=== PATIENT | female | born 1960 | race Caucasian/White ===

== ENCOUNTER 2017-09-17 04:57 | Inpatient (IN) | payer OTHER ==
[2017-08-22 13:14] VITALS: BMI 33.0
--- NOTE | 2017-08-22 13:50 | PAT Medication Instructions ---
Service Date Aug 22, 2017. Current Home Medication List Atorvastatin (Lipitor), 10 MG PO QAM Diclofenac (Voltaren), 75 MG PO BID Diltiazem Hcl Ext Rel (Tiazac), 240 MG PO QAM Prednisone (Prednisone), 40 MG PO QAM Topiramate (Topamax), 50 MG PO BID Valsartan (Diovan), 160 MG PO QAM [Vitamin D], 1.25 MG PO WEEKLY Medication Instructions For Your Scheduled Surgery -Contact your surgeon for instructions for: Diclofenac (Voltaren), 75 MG PO BID - Hold the following medications the morning of surgery: Valsartan (Diovan), 160 MG PO QAM [Vitamin D], 1.25 MG PO WEEKLY - Take the following medications the morning of surgery with a sip of water: Atorvastatin (Lipitor), 10 MG PO QAM Diltiazem Hcl Ext Rel (Tiazac), 240 MG PO QAM Prednisone (Prednisone), 40 MG PO QAM Topiramate (Topamax), 50 MG PO BID - Take the following medications as scheduled the night before surgery: Topiramate (Topamax), 50 MG PO BID If you have any questions please call us at [phone] or [phone] or [phone]
--- NOTE | 2017-08-22 14:41 | DIAGNOSTIC IMAGING REPORT ---
CHEST 2 VIEWS ROUTINE HISTORY: Preop. COMPARISON: None. FINDINGS: A few bibasilar linear densities consistent with subsegmental atelectasis or scarring. The heart is normal in size. No pleural effusions. No pneumothorax. IMPRESSION: Bibasilar linear densities suggesting subsegmental atelectasis or scarring. Otherwise, no acute process within the chest. Electronically signed by: Jamal Rodríguez M.D. 08/22/2017 2:40 PM Dictated Date/Time: 08/22/2017 2:38 PM
[2017-08-22 15:04] LABS: BASO % 0.5 %; BASO ABS # 0.04 K/uL (0-0.2); EOS % 1.9 %; EOS ABS # 0.14 K/uL (0-0.5); HEMATOCRIT 40.5 % (37-47); HEMOGLOBIN 14.3 g/dL (12.0-16.0); IG# 0.01 K/uL (0.00-0.02); LYMPH ABS # 3.25 K/uL (1.2-3.4); MEAN CELL VOLUME 91.4 fL (80-100); MEAN CORPUSCULAR HEMOGLOBIN 32.3 pg (25-34); MEAN CORPUSCULAR HGB CONC 35.3 g/dl (32-36); MEAN PLATELET VOLUME 9.8 fL (7.4-10.4); MONO % 6.8 %; MONO ABS # 0.51 K/uL (0.11-0.59); NEUT % 47.7 %; PLATELET COUNT 402 K/uL (130-400); RED CELL DISTRIBUTION WIDTH SD 50.7 fL (36.4-46.3); WHITE BLOOD COUNT 7.55 K/uL (4.8-10.8)
[2017-08-22 15:13] LABS: ALBUMIN 3.4 gm/dl (3.4-5.0); CALCIUM 8.6 mg/dl (8.5-10.1); CREATININE 0.84 mg/dl (0.60-1.20); POTASSIUM 3.5 mmol/L (3.5-5.1)
[2017-08-22 15:19] LABS: PTT PATIENT 28.8 SECONDS (21.0-31.0)
[2017-08-23 07:54] LABS: HEMOGLOBIN A1C 5.6 % (4.5-5.6)
--- NOTE | 2017-09-16 22:05 | HISTORY & PHYSICAL EXAMINATION ---
DATE OF ADMISSION: 09/17/2017 CHIEF COMPLAINT: Chronic right knee pain. HISTORY OF PRESENT ILLNESS: This is a 57-year-old female patient of Dr. Núñez'delon complaining of chronic right knee pain, longstanding, now progressively getting worse. The patient has been diagnosed with end-stage osteoarthritis per clinical and radiographic exams. The patient has failed conservative treatment including anti-inflammatories and the use of a sleeve. The patient has increased pain with weightbearing activities and her pain does interfere with her activities of daily living. PAST MEDICAL HISTORY: Hypertension, anxiety, osteoarthritis, obesity, dental issues. SOCIAL HISTORY: Nonsmoker, nondrinker. PAST SURGICAL HISTORY: Tonsillectomy, appendectomy, cholecystectomy, splenectomy, reverse tubal ligation, carpal tunnel on the right and a left hip replacement. FAMILY HISTORY: Noncontributory. REVIEW OF SYSTEMS: The patient complains of chronic right knee pain and instability. Otherwise denies any shortness of breath, chest pain, nausea, vomiting or any other joint complaints. MEDICATIONS: Atorvastatin 10 mg daily, vitamin D2 50,000 units daily, prednisone 20 mg daily, diclofenac 75 mg as needed, topiramate 50 mg b.i.d., diltiazem 240 mg extended release daily. ALLERGIES: INCLUDE PENICILLIN, AUGMENTIN. PHYSICAL EXAMINATION: GENERAL: Well-developed, well-nourished 57-year-old female in no acute distress. She is alert and oriented x3 and pleasant. HEENT: Normocephalic, atraumatic. Extraocular motions are intact. Pupils are equal and reactive to light. HEART: Regular rate and rhythm, no murmurs are appreciated. LUNGS: Clear. ABDOMEN: Soft and nontender. Bowel sounds present. EXTREMITIES: Right knee reveals mild effusion with limited range of motion. She has joint line tenderness. 4/5 strength. NEUROLOGIC: Neurovascularly, she is intact in her right lower extremity. DIAGNOSES: Right knee end-stage osteoarthritis with a history of hypertension, anxiety, osteoarthritis, obesity, dental issues. PLAN: The patient was advised of her diagnosis. Indications, risks, benefits, postop course have all been reviewed. The patient wished to proceed with a right total knee arthroplasty. Necessary consent forms, preoperative testing and clearances will be obtained.
[2017-09-17] VITALS (9 sets, daily range): BP systolic 110–140; BP diastolic 75–106; PULSE 66–90; TEMP 36.2–36.5; O2SAT 91–99; Ht 160 cm; Wt 86.3 kg
[~2017-09-17] VITALS: Ht 160 cm; Wt 86.3 kg
[~2017-09-17 04:57] MED LIST: ATOR10TA82 PO; DICL-201 PO; DILT-115 PO; DVN/160 PO; PRED20TA PO; TOPI50TA16 PO; VITAMIN D PO
[2017-09-17] MEDS ORDERED: LACTATED RINGER'S 1000ML 1,000 ML IV SCH (06:00)
[2017-09-17] MEDS ORDERED: FAMOTIDINE 20 MG TAB PO SCH (06:00)
[2017-09-17] MEDS ORDERED: ACETAMINOPHEN 500 MG TAB PO SCH (06:00)
[2017-09-17] MEDS ORDERED: METOCLOPRAMIDE HCL 10 MG TAB PO SCH (06:00)
[2017-09-17] MEDS ORDERED: VANCOMYCIN 1GM ED/ASU OMNICELL 270 ML IV SCH (06:00)
[2017-09-17] MEDS ORDERED: GABAPENTIN 600 MG PO SCH (06:00)
[2017-09-17] MEDS ORDERED: CeleBREX 200 MG CAP PO SCH (06:00)
[2017-09-17] MEDS ORDERED: LACTATED RINGER'S 1000ML 500 ML IV SCH (06:00)
[2017-09-17] MEDS ORDERED: ROPIVACAINE 5MG/ML 30 ML 150 MG, BUPIVACAINE 0.5% MPF INJ 30 ML, EpINEphrine HCL INJ 0.... INFIL SCH ×8 (06:00)
[2017-09-17] MEDS ORDERED: DEXAMETHASONE 4 MG TAB PO SCH (06:00)
[2017-09-17] MEDS ORDERED: VANCOMYCIN IV 1,250 MG in SODIUM CHLORIDE 0.9% 250ML 250 ML IV SCH ×2 (06:00→18:00)
[2017-09-17] MEDS ORDERED: BUPIVACAINE 0.5 % 5 MG/1 ML PF 10ML VIAL ONE (06:25)
[2017-09-17] MEDS ORDERED: FENTANYL CITRATE INJ 50 MCG/1 ML 2 ML VIAL ONE (06:26)
[2017-09-17] MEDS ORDERED: MIDAZOLAM HCL 1 MG/ML 2ML VIAL ONE ×2 (06:26→07:33)
[2017-09-17] MEDS ORDERED: POVIDONE-IODINE OP SOLN 30 ML BTL ONE (06:27)
[2017-09-17] MEDS ORDERED: BACITRACIN 50000 UNIT VIAL ONE (06:27)
[2017-09-17] MEDS ORDERED: ORTHO JOINT ANESTHETIC ONE (06:27)
[2017-09-17] MEDS: TRANEXAMIC ACID INJ 1,000 MG x 2 Bags IV SCH ×4 (06:30→07:14)
[2017-09-17] MEDS ORDERED: ATROPINE SULFATE 0.1 MG/ML 5ML SYR IV PRN (07:00)
[2017-09-17] MEDS ORDERED: FENTANYL CITRATE INJ 50 MCG/1 ML 2 ML VIAL IV PRN (07:00)
[2017-09-17] MEDS ORDERED: ONDANSETRON INJ 2 MG/ML 2 ML VIAL IV PRN (07:00)
[2017-09-17] MEDS ORDERED: EpHEDrine SULFATE INJ 50 MG/ML AMP IV PRN (07:00)
--- NOTE | 2017-09-17 07:19 | History & Physical Bridge Note ---
H&P Re-Evaluation Bridge Note: I have examined the patient, reviewed the History & Physical and in the interval since the performance of the History & Physical I have noted the following changes of clinical significance: No changes noted
[2017-09-17] MEDS ORDERED: PROPOFOL IV EMULSION 10 MG/ML 20 ML VIAL IV ONE (07:53)
--- NOTE | 2017-09-17 08:51 | [facility] Post Operative Brief Note ---
Immediate Operative Summary Operative Date Sep 17, 2017. Pre-Operative Diagnosis Right Knee Degenerative Joint Disease Post-Operative Diagnosis Same as preop Procedure(s) Performed Right Total Knee Arthroplasty Surgeon Dr. Núñez Toll Collector Surgeon(s) Mat Yoon PA-C Estimated Blood Loss 5 ml Findings Consistent with Post-Op Diagnosis Specimens A. Right Knee Bone and Tissue Drains 2 hemovac Anesthesia Type MAC Spinal Regional Complication(s) none Disposition Disposition: Recovery Room / PACU
[2017-09-17] MEDS ORDERED: SOD PHOSPHATE/SOD BIPHOSPHATE ENEMA 132 ML BTL PR PRN (09:15)
[2017-09-17] MEDS ORDERED: BISACODYL 10 MG SUPP PR PRN (09:15)
[2017-09-17] MEDS ORDERED: ZOLPIDEM TARTRATE 5 MG TAB PO PRN (09:15)
[2017-09-17] MEDS ORDERED: TRAMADOL HCL 50 MG TAB PO PRN (09:15)
[2017-09-17] MEDS ORDERED: METOCLOPRAMIDE HCL INJ 5 MG/ML 2 ML VIAL IV PRN (09:15)
[2017-09-17] MEDS ORDERED: MAGNESIUM HYDROXIDE SUSP 30 ML UDC PO PRN (09:15)
[2017-09-17] MEDS ORDERED: VANCOMYCIN CONSULT ACTIVE PRN (09:15)
--- NOTE | 2017-09-17 09:43 | DIAGNOSTIC IMAGING REPORT ---
RIGHT KNEE 2 VIEWS History: Right total knee arthroplasty. Degenerative arthritis. Postop. FINDINGS: The patient is status post a right total knee arthroplasty. The hardware is intact. No fracture or dislocation. Skin ian and surgical drains are in place. IMPRESSION: Right total knee arthroplasty. No evidence for hardware complication. Electronically signed by: Jamal Rodríguez M.D. 09/17/2017 9:42 AM Dictated Date/Time: 09/17/2017 9:41 AM
--- NOTE | 2017-09-17 09:51 | Anesthesiology Progress Note ---
Anesthesia Post Op Note Date & Time Sep 17, 2017 at 09:51 Vital Signs Pain Intensity: 0 Vital Signs Past 12 Hours Date Time Temp Pulse Resp B/P (MAP) Pulse Ox O2 Delivery O2 Flow Rate FiO2 09/17/17 09:40 67 16 113/86 96 Nasal Cannula 2 09/17/17 09:30 67 16 114/77 95 Nasal Cannula 2 09/17/17 09:20 67 16 106/79 95 Nasal Cannula 2 09/17/17 09:12 36.3 81 16 120/76 91 Room Air 09/17/17 05:40 36.5 69 20 140/106 94 Room Air Notes Mental Status: alert / awake / arousable, participated in evaluation Pt Amnestic to Procedure: Yes Nausea / Vomiting: adequately controlled Pain: adequately controlled Airway Patency, RR, SpO2: stable & adequate BP & HR: stable & adequate Hydration State: stable & adequate Neuraxial Anesthesia: was administered, sensory block is resolving Anesthetic Complications: no major complications apparent
[2017-09-17] MEDS ORDERED: MoRPHine SULFATE 4 MG/ML 1 ML CARP\\VIAL IV PRN (10:45)
[2017-09-17] MEDS: D5W AND 1/2NSS + 20MEQ KCL 1,000 ML IV SCH ×2 (11:00→21:47)
--- NOTE | 2017-09-17 12:26 | Medical Consult ---
Consultation Date of Consultation: Sep 17, 2017. Attending Physician: Lul Núñez M.D. History of Present Illness 57 years female with PMHx of HTN and osteoarthritis. patient failed out patient conservative management and presented to the hospital for an elective RTKA procedure went uneventful. Social History Smoking Status: Never Smoker Allergies Coded Allergies: Amoxicillin (Verified Allergy, Unknown, RASH, 09/17/17) Bacitracin (Verified Allergy, Unknown, RASH, 09/17/17) Neomycin (Verified Allergy, Unknown, RASH, 09/17/17) Polymyxin B (Verified Allergy, Unknown, RASH, 09/17/17) Current Inpatient Medications Current Inpatient Medications Medications (Trade) Dose Ordered Sig/Sarahi Route Start Time Stop Time Status Last Admin Dose Admin Acetaminophen (Tylenol Tab) 1,000 mg PREOP PO 09/17/17 06:00 09/17/17 18:00 Celecoxib (CeleBREX CAP) 200 mg PREOP PO 09/17/17 06:00 09/17/17 18:00 09/17/17 06:13 200 MG Dexamethasone (Decadron Tab) 8 mg PREOP PO 09/17/17 06:00 09/17/17 18:00 09/17/17 06:13 8 MG Famotidine (Pepcid Tab) 20 mg PREOP PO 09/17/17 06:00 09/17/17 18:00 09/17/17 06:13 20 MG Gabapentin (Neurontin Cap) 600 mg PREOP PO 09/17/17 06:00 09/17/17 18:00 09/17/17 06:13 600 MG Metoclopramide HCl (Reglan Tab) 10 mg PREOP PO 09/17/17 06:00 09/17/17 18:00 09/17/17 06:14 10 MG Atorvastatin Calcium (Lipitor Tab) 10 mg QAM PO 09/18/17 09:00 10/18/17 08:59 Diltiazem HCl (TIAzac CAP) 240 mg QAM PO 09/18/17 09:00 10/18/17 08:59 Topiramate (Topamax Tab) 50 mg BID PO 09/17/17 21:00 10/17/17 20:59 Valsartan (Diovan Tab) 160 mg QAM PO 09/18/17 09:00 10/18/17 08:59 Potassium Chloride/Dextrose/ Sod Cl 1,000 ml @ 100 mls/hr Q10H IV 09/17/17 11:00 09/18/17 10:59 09/17/17 11:00 100 MLS/HR Vancomycin HCl 1250 mg/Sodium Chloride 275 ml @ 125 mls/hr Q12H IV 09/17/17 18:00 09/17/17 20:11 Celecoxib (CeleBREX CAP) 200 mg BID PO 09/17/17 21:00 10/17/17 20:59 Oxycodone HCl (Roxicodone Immediate Rel Tab) 1 TABLET FOR PAIN RATING... Q4H PRN PO 09/17/17 09:15 10/01/17 09:14 Morphine Sulfate (MoRPHine SULFATE INJ) 2 mg Q2H PRN IV 09/17/17 09:15 10/01/17 09:14 Acetaminophen (Tylenol Tab) 1,000 mg Q8 PO 09/17/17 14:00 10/17/17 13:59 Magnesium Hydroxide (Milk Of Magnesia Susp) 30 ml Q6H PRN PO 09/17/17 09:15 10/17/17 09:14 Bisacodyl (Dulcolax Supp) 10 mg DAILY PRN DE 09/17/17 09:15 10/17/17 09:14 Sodium Biphosphate/ Sodium Phosphate (Fleet Enema) 132 ml DAILY PRN DE 09/17/17 09:15 10/17/17 09:14 Docusate Sodium (coLACE CAP) 100 mg BID PO 09/17/17 21:00 10/17/17 20:59 Diphenhydramine HCl (Benadryl Cap) 25 mg Q8H PRN PO 09/17/17 09:15 10/17/17 09:14 Zolpidem Tartrate (Ambien Tab) 5 mg HSZ PRN PO 09/17/17 09:15 10/17/17 09:14 Multivitamins (Multivitamin Tab) 1 tab QAM PO 09/18/17 09:00 10/18/17 08:59 Ondansetron HCl (Zofran Inj) 4 mg Q6H PRN IV 09/17/17 09:15 10/17/17 09:14 Metoclopramide HCl (Reglan Inj) 10 mg Q6H PRN IV 09/17/17 09:15 10/17/17 09:14 Pantoprazole Sodium (Protonix Tab) 40 mg QAM PO 09/18/17 09:00 09/21/17 09:01 Tramadol HCl (Ultram Tab) 1 tablet for pain rating... Q4H PRN PO 09/17/17 09:15 10/17/17 09:14 Aspirin (Ecotrin Tab) 81 mg BID PO 09/17/17 21:00 10/17/17 20:59 Morphine Sulfate (MoRPHine SULFATE INJ) 4 mg Q2H PRN IV 09/17/17 10:45 10/01/17 10:44 Review of Systems Review of system Constitutional: No fever / no chills / no sweats / no weakness / no fatigue Eyes: no blurring of vision / no eye pain / no discharge / no redness ENT: no hearing loss / no epistaxis /no swallowing problems Respiratory: no cough / no wheezing / no SOB / no hemoptysis Cardiovascular: no Chest pain / no lower extremity edema / no palpitation Abdomen: no pain / no nausea / no vomiting / no constipation Musculoskeletal: no joint pain / no muscle pain / no joint swelling Genitourinary: no dysuria / no incontinence / no urinary retention Neurologic: no focal weakness / no numbness/tingling / no ataxia Psychiatric: no depression symptoms / no anxiety / no insomnia Endocrine: no excessive thirst / no excessive urination Hematologic: no abnormal bleeding / no bruising / no LN swelling Skin: No rash / no pallor Physical Exam Date Time Temp Pulse Resp B/P (MAP) Pulse Ox O2 Delivery O2 Flow Rate FiO2 09/17/17 12:00 36.2 79 14 121/85 (97) 98 Nasal Cannula 2.0 09/17/17 11:03 36.4 69 15 110/77 (88) 99 Nasal Cannula 2.0 09/17/17 10:31 36.4 70 15 119/87 (98) 99 Nasal Cannula 2.0 09/17/17 10:00 94 Nasal Cannula 2.0 09/17/17 10:00 36.3 66 12 115/79 (91) 94 Nasal Cannula 2.0 09/17/17 10:00 94 Nasal Cannula 2.0 09/17/17 09:40 67 16 113/86 96 Nasal Cannula 2 09/17/17 09:30 67 16 114/77 95 Nasal Cannula 2 09/17/17 09:20 67 16 106/79 95 Nasal Cannula 2 09/17/17 09:12 36.3 81 16 120/76 91 Room Air 09/17/17 05:40 36.5 69 20 140/106 94 Room Air Physical examination General patient appears to be comfortable, not in acute distress HEENT: Atraumatic , normocephalic /no jaundice /no pallor /anicteric /no dry mucous membrane /normal external ear inspection Neck: Supple /no swelling /central trach Heart: S1/S2 normal/regular rate and rhythm/no gallop /no rub /no murmur Lungs: Clear to auscultation bilaterally/normal chest with expansion/no rhonchi/ no rales/no wheezing/no use of accessory muscles of respiration Abdomen: Soft/nontender/no guarding/no rebound/no organomegaly/no pulsatile mass Musculoskeletal: No swelling/no edema/no tenderness/normal range of motion Neuro exam: Awake alert oriented 3/cranial nerves II through XII appear to be intact/sensation intact/moves all extremities/no abnormal movements Psychiatric evaluation: No depressed mood/normal affect Skin: No rash on exposed skin area/no erythema Extremity: Normal pulse/no pitting edema/no clubbing or cyanosis Endocrine/lymphatic: No obvious lymphadenopathy /no lymphedema Laboratory Results Last 24 Hours Test 09/17/17 06:12 Human Chorionic Gonadotropin, Qual NEG Assessment & Plan 57 years female with PMHx of HTN and osteoarthritis. patient failed out patient conservative management and presented to the hospital for an elective RTKA procedure went uneventful. Assessment: severe osteoarthritis that failed outpatient conservative measures. Patient presented to the hospital for an elective orthopedic procedure Plan Status post orthopedic procedure, went uneventful full Patient tolerated procedure well with minimal blood loss Appears to be stable Continue outpatient medications Follow-up labs Ensure adequate oral/parenteral intake Pain management Physical therapy initiation as per primary orthopedic team DVT prophylaxis as per the choice of primary orthopedic team Please call us if you have any questions, patient blood pressure is controlled on her home blood pressure meds. Does not appear to have any active medical issues at this point
[2017-09-17] MEDS: ACETAMINOPHEN 500 MG TAB PO SCH ×2 (13:57→21:47)
[2017-09-17] MEDS: OXYCODONE HCL IR 5 MG TAB (IMMEDIATE RELEASE) PO PRN ×2 (14:02→20:25)
[2017-09-17] MEDS: TOPIRAMATE 25 MG TAB PO SCH (20:19)
[2017-09-17] MEDS: ASPIRIN 81 MG ECTAB PO SCH (20:19)
[2017-09-17] MEDS: DOCUSATE SODIUM 100 MG CAP PO SCH (20:20)
[2017-09-17] MEDS: CeleBREX 200 MG CAP PO SCH (20:21)
--- NOTE | 2017-09-17 20:42 | OPERATIVE REPORT ---
DATE OF OPERATION: 09/17/2017 INDICATION FOR PROCEDURE: The patient is a 57-year-old female who presents with chronic progressive osteoarthritis in her right knee. Radiographs demonstrate that she is [id number] to medial compartment with a varus knee. PREOPERATIVE DIAGNOSIS: Endstage osteoarthritis, right knee. POSTOPERATIVE DIAGNOSIS: Same. PROCEDURE: Right total knee arthroplasty. SURGEON: Lul Núñez MD. RESPIRATORY MANAGER: MAMIE Escalera. ANESTHESIA: Spinal sedation, adductor nerve block, Orthomix. ESTIMATED BLOOD LOSS: 5 mL. DRAINS: Two Hemovac. OPERATIVE PROCEDURE: The patient was taken to the operating room, anesthetized under anesthesia as dictated. Pneumatic tourniquet was placed on right upper thigh. She did have a moderately obese upper thigh. Knee exam demonstrated a varus knee. She had tight medial compartment, some laxity of the lateral collateral ligament relatively. She had a -5 through 125 degrees range of motion. She had a small effusion. Her right lower extremity was then prepped and draped with ChloraPrep. Leg was elevated and exsanguinated with an Esmarch bandage and pneumatic tourniquet was raised to 350 mmHg. Anterior incision was made across the knee. Skin incision was made longitudinally. Subcutaneous flaps were elevated. An incision was made through medial retinaculum extended up in the middle of the quadriceps tendon and extended down to the medial tibial tubercle. Intra-articular findings demonstrated that she had [id number] in the medial compartment. She had grade 3 DJD patellofemoral joint. I used the Cespedes & Nephew Journey 2.0, total knee arthroplasty system using [employer] MRI templating with femur sized for a 4, tibia for a 2. Exposure performed by resecting the infrapatellar fat pad performing more of a release throughout the medial tibial plateau and no release laterally. The fat pad over the anterior femur for placement of the component in that area was resected. Lateral synovial bands were released. The menisci were resected. The crucial ligaments were resected. The femur was exposed. The custom femoral cutting block was pinned in position. The distal femoral cut was made. Then the 5-in-1 cutting block was placed for the size 4 femur component. The anterior, posterior and chamfer cuts were made. The knee was then extended. A subperiosteal peel lateral release was performed around the patella and then the patella width was measured. The width was reproduced using freehand cut technique and drill holes for the dome patellar component were made. The excess lateral facet was bevelled off to prevent any impingement. The tibia was then exposed and subluxed. The custom tibial cutting block was pinned in position. The proximal tibial cut was made with the oscillating saw. The lamina trimmer operator was used to assess ligamentous balance. To balance the knee we had to pie crust the MCL to get balanced flexion and extension gaps. The tibia was resubluxed and 2 tibial trial was externally rotated in line with the tibial tubercle, pinned in position. Punch for the stem was used. The 4 femoral trial was inserted and centered and the notch cutting device was used and the collet was placed. A 12 insert gave balanced ligaments through full range of motion and patella tracked centrally with the 32 patella. The trials were removed. The Orthomix anesthetic cocktail was injected per protocol. The knee was copiously irrigated with pulsatile lavage saline solution. The final components were cemented with Simplex cement. Final components were the 4 Oxinium posterior stabilized right Cespedes & Nephew Journey 2.0 femoral component, the 2 tibial baseplate, the high flex posterior stabilized 12 mm polyethylene insert and the 32 mm dome patella. While cement cured, the Betadine soak was used per protocol. Then when the cement fully cured, the knee was again copiously irrigated with the saline solution and then the 2 drains were brought out laterally. Then the quadriceps tendon, medial retinaculum were closed with interrupted [id number] #1 Vicryl sutures. The knee was taken through full range of motion and repair was secured. Subcutaneous tissue closed with interrupted 2-0 Vicryl, skin was closed with ian. Sterile dressings were applied and the patient tolerated the procedure well. MAMIE Escalera was my food and beverage assistant who functioned as food and beverage assistant throughout the entire procedure. He assisted in patient positioning, prepping, draping, leg positioning, soft tissue retraction, instrument management and performed the fascial, subcutaneous and skin closure and will participate in postoperative care of the patient. I attest to the content of the Intraoperative Record and any orders documented therein. Any exception s are noted below.
[2017-09-18] VITALS (7 sets, daily range): BP systolic 121–153; BP diastolic 79–106; PULSE 69–86; TEMP 36.4–36.7; O2SAT 90–96
[2017-09-18] MEDS: ACETAMINOPHEN 500 MG TAB PO SCH ×3 (05:29→20:57)
[2017-09-18] MEDS ORDERED: NURSING DECISION MEDICATION ORDER SCH (05:45)
[2017-09-18 05:50] LABS: HEMOGLOBIN 11.4 g/dL (12.0-16.0); MEAN CELL VOLUME 90.4 fL (80-100); MEAN CORPUSCULAR HEMOGLOBIN 32.2 pg (25-34); MEAN CORPUSCULAR HGB CONC 35.6 g/dl (32-36); MEAN PLATELET VOLUME 9.6 fL (7.4-10.4); PLATELET COUNT 308 K/uL (130-400); RED CELL DISTRIBUTION WIDTH CV 14.8 % (11.5-14.5); RED CELL DISTRIBUTION WIDTH SD 49.4 fL (36.4-46.3); WHITE BLOOD COUNT 24.99 K/uL (4.8-10.8)
[2017-09-18 06:26] LABS: BASO ABS # 0.01 K/uL (0-0.2); IG# 0.09 K/uL (0.00-0.02); LYMPH % 9.1 %; LYMPH ABS # 2.27 K/uL (1.2-3.4); MONO % 6.1 %; MONO ABS # 1.52 K/uL (0.11-0.59); NEUT % 84.4 %
[2017-09-18 06:32] LABS: ALBUMIN 2.9 gm/dl (3.4-5.0); CALCIUM 8.1 mg/dl (8.5-10.1); CREATININE 0.72 mg/dl (0.60-1.20); POTASSIUM 3.6 mmol/L (3.5-5.1)
[2017-09-18 06:34] LABS: TOTAL PROTEIN 5.9 gm/dl (6.4-8.2)
[2017-09-18] MEDS: D5W AND 1/2NSS + 20MEQ KCL 1,000 ML IV SCH (08:06)
--- NOTE | 2017-09-18 08:09 | Orthopedic Progress Note ---
Orthopedic Progress Note Date of Service Sep 18, 2017. Subjective Post OP Day: 1 Reports: feeling well, pain controlled w PO medications, Denies: complaints, chest pain, SOB, nausea / vomiting, light headedness, calf pain Additional Notes: 200cc drain. Objective calves soft nontender, N/V intact, capillary refill less than 2 sec., dressing C /D/I, A&O x3, toes mobile Date Time Temp Pulse Resp B/P (MAP) Pulse Ox O2 Delivery O2 Flow Rate FiO2 09/18/17 06:50 36.6 72 17 128/85 (99) 92 Room Air 09/18/17 03:35 36.5 70 16 124/86 (99) 90 Room Air 09/17/17 23:15 Room Air 09/17/17 22:52 36.3 77 16 112/75 (87) 91 Room Air 09/17/17 20:27 36.4 90 16 122/77 (92) 94 Room Air 09/17/17 15:07 36.3 83 17 121/80 (94) 93 Room Air 09/17/17 15:00 Room Air 09/17/17 13:00 36.4 70 15 129/89 (102) 95 Nasal Cannula 2.0 09/17/17 12:00 36.2 79 14 121/85 (97) 98 Nasal Cannula 2.0 09/17/17 11:03 36.4 69 15 110/77 (88) 99 Nasal Cannula 2.0 09/17/17 10:31 36.4 70 15 119/87 (98) 99 Nasal Cannula 2.0 09/17/17 10:00 94 Nasal Cannula 2.0 09/17/17 10:00 36.3 66 12 115/79 (91) 94 Nasal Cannula 2.0 09/17/17 10:00 94 Nasal Cannula 2.0 09/17/17 09:40 67 16 113/86 96 Nasal Cannula 2 09/17/17 09:30 67 16 114/77 95 Nasal Cannula 2 09/17/17 09:20 67 16 106/79 95 Nasal Cannula 2 09/17/17 09:12 36.3 81 16 120/76 91 Room Air Laboratory Results 24 Hours: Test 09/18/17 05:12 White Blood Count 24.99 K/uL Red Blood Count 3.54 M/uL Hemoglobin 11.4 g/dL Hematocrit 32.0 % Mean Corpuscular Volume 90.4 fL Mean Corpuscular Hemoglobin 32.2 pg Mean Corpuscular Hemoglobin Concent 35.6 g/dl Platelet Count 308 K/uL Mean Platelet Volume 9.6 fL Neutrophils (%) (Auto) 84.4 % Lymphocytes (%) (Auto) 9.1 % Monocytes (%) (Auto) 6.1 % Eosinophils (%) (Auto) 0.0 % Basophils (%) (Auto) 0.0 % Neutrophils # (Auto) 21.10 K/uL Lymphocytes # (Auto) 2.27 K/uL Monocytes # (Auto) 1.52 K/uL Eosinophils # (Auto) 0.00 K/uL Basophils # (Auto) 0.01 K/uL Assessment & Plan Assessment: POD #1, Right TKA Plan: PT/ OT DVT proph- ASA D/C planning- Home w OPPT As per medicine Inhouse Planning Pain Management: Celebrex, Ultram, Morphine, PO Tylenol, Oxy IR DVT Prophylaxis: TEDs, SCDs, ASA Discharge Planning Discharge Planning: home with oppt Pain Management: Celebrex, PO Tylenol, Oxy IR DVT Prophylaxis: TEDs, ASA Therapy: Physical Therapy, Occupational Therapy
[2017-09-18] MEDS: CeleBREX 200 MG CAP PO SCH ×2 (08:45→20:58)
[2017-09-18] MEDS: DOCUSATE SODIUM 100 MG CAP PO SCH ×2 (08:45→20:59)
[2017-09-18] MEDS: ASPIRIN 81 MG ECTAB PO SCH ×2 (08:46→20:58)
[2017-09-18] MEDS: TOPIRAMATE 25 MG TAB PO SCH ×2 (08:47→20:57)
[2017-09-18] MEDS ORDERED: ATORVASTATIN 10 MG TAB PO SCH (09:00)
[2017-09-18] MEDS ORDERED: PANTOprazole SOD 40 MG TAB PO SCH (09:00)
[2017-09-18] MEDS ORDERED: VALSARTAN 80 MG TAB PO SCH (09:00)
[2017-09-18] MEDS ORDERED: MULTIVITAMIN TAB PO SCH (09:00)
[2017-09-18] MEDS ORDERED: DILTIAZEM HCL 120 MG EXT REL CAP PO SCH (09:00)
--- NOTE | 2017-09-18 09:54 | Anesthesiology Progress Note ---
Anesthesia Post Op Note Date & Time Sep 18, 2017 at 09:53 Vital Signs Vital Signs Past 12 Hours Date Time Temp Pulse Resp B/P (MAP) Pulse Ox O2 Delivery O2 Flow Rate FiO2 09/18/17 06:50 36.6 72 17 128/85 (99) 92 Room Air 09/18/17 03:35 36.5 70 16 124/86 (99) 90 Room Air 09/17/17 23:15 Room Air 09/17/17 22:52 36.3 77 16 112/75 (87) 91 Room Air Notes Mental Status: alert / awake / arousable, participated in evaluation Pt Amnestic to Procedure: Yes Nausea / Vomiting: adequately controlled Pain: adequately controlled Airway Patency, RR, SpO2: stable & adequate BP & HR: stable & adequate Hydration State: stable & adequate Neuraxial Anesthesia: sensory block resolved Anesthetic Complications: no major complications apparent
--- NOTE | 2017-09-18 10:48 | Hospitalist Progress Note ---
Hospitalist Progress Note Date of Service Sep 18, 2017. (Silvia Murry PA-C) Subjective Pt evaluation today including: conversation w/ patient, physical exam, chart review, lab review, review of studies, review of inpatient medication list Patient seen and evaluated. No acute events overnight. States she is having a little pain in the R knee but just finished with therapy. Tolerating a diet without issue. Verbalizes no complaints. WBC elevated at 24.9 but no signs of infection, ill- feeling, or fevers. Likely just reactive and related to pre-operative steroids. Constitutional: No fever, No chills ENT: No nasal symptoms, No sore throat Respiratory: No cough, No shortness of breath Cardiovascular: No chest pain Abdomen: No pain, No nausea, No vomiting, No diarrhea, No constipation Musculoskeletal: + joint pain (minimal in R knee - controlled with pain medication) Female : No dysuria Heme: No abnormal bleeding/bruising Skin: No rash (Silvia Murry PA-C) Medications Current Inpatient Medications Medications (Trade) Dose Ordered Sig/Sarahi Route Start Time Stop Time Status Last Admin Dose Admin Atorvastatin Calcium (Lipitor Tab) 10 mg QAM PO 09/18/17 09:00 10/18/17 08:59 09/18/17 08:46 10 MG Diltiazem HCl (TIAzac CAP) 240 mg QAM PO 09/18/17 09:00 10/18/17 08:59 09/18/17 08:47 240 MG Topiramate (Topamax Tab) 50 mg BID PO 09/17/17 21:00 10/17/17 20:59 09/18/17 08:47 50 MG Valsartan (Diovan Tab) 160 mg QAM PO 09/18/17 09:00 10/18/17 08:59 09/18/17 08:45 160 MG Potassium Chloride/Dextrose/ Sod Cl 1,000 ml @ 100 mls/hr Q10H IV 09/17/17 11:00 09/18/17 10:59 09/18/17 08:06 100 MLS/HR Celecoxib (CeleBREX CAP) 200 mg BID PO 09/17/17 21:00 10/17/17 20:59 09/18/17 08:45 200 MG Oxycodone HCl (Roxicodone Immediate Rel Tab) 1 TABLET FOR PAIN RATING... Q4H PRN PO 09/17/17 09:15 10/01/17 09:14 09/17/17 20:25 5 MG Morphine Sulfate (MoRPHine SULFATE INJ) 2 mg Q2H PRN IV 09/17/17 09:15 10/01/17 09:14 Acetaminophen (Tylenol Tab) 1,000 mg Q8 PO 09/17/17 14:00 10/17/17 13:59 09/18/17 05:29 1,000 MG Magnesium Hydroxide (Milk Of Magnesia Susp) 30 ml Q6H PRN PO 09/17/17 09:15 10/17/17 09:14 Bisacodyl (Dulcolax Supp) 10 mg DAILY PRN [place] 09/17/17 09:15 10/17/17 09:14 Sodium Biphosphate/ Sodium Phosphate (Fleet Enema) 132 ml DAILY PRN [place] 09/17/17 09:15 10/17/17 09:14 Docusate Sodium (coLACE CAP) 100 mg BID PO 09/17/17 21:00 10/17/17 20:59 09/18/17 08:45 100 MG Diphenhydramine HCl (Benadryl Cap) 25 mg Q8H PRN PO 09/17/17 09:15 10/17/17 09:14 Zolpidem Tartrate (Ambien Tab) 5 mg HSZ PRN PO 09/17/17 09:15 10/17/17 09:14 Multivitamins (Multivitamin Tab) 1 tab QAM PO 09/18/17 09:00 10/18/17 08:59 09/18/17 08:46 1 TAB Ondansetron HCl (Zofran Inj) 4 mg Q6H PRN IV 09/17/17 09:15 10/17/17 09:14 Metoclopramide HCl (Reglan Inj) 10 mg Q6H PRN IV 09/17/17 09:15 10/17/17 09:14 Pantoprazole Sodium (Protonix Tab) 40 mg QAM PO 09/18/17 09:00 09/21/17 09:01 09/18/17 08:46 40 MG Tramadol HCl (Ultram Tab) 1 tablet for pain rating... Q4H PRN PO 3/14/18 09:15 10/17/17 09:14 Aspirin (Ecotrin Tab) 81 mg BID PO 09/17/17 21:00 10/17/17 20:59 09/18/17 08:46 81 MG Morphine Sulfate (MoRPHine SULFATE INJ) 4 mg Q2H PRN IV 09/17/17 10:45 10/01/17 10:44 (Silvia Murry PA-C) Objective Vital Signs Date Time Temp Pulse Resp B/P (MAP) Pulse Ox O2 Delivery O2 Flow Rate FiO2 09/18/17 07:40 Room Air 09/18/17 06:50 36.6 72 17 128/85 (99) 92 Room Air 09/18/17 03:35 36.5 70 16 124/86 (99) 90 Room Air 09/17/17 23:15 Room Air 09/17/17 22:52 36.3 77 16 112/75 (87) 91 Room Air 09/17/17 20:27 36.4 90 16 122/77 (92) 94 Room Air 09/17/17 15:07 36.3 83 17 121/80 (94) 93 Room Air 09/17/17 15:00 Room Air 09/17/17 13:00 36.4 70 15 129/89 (102) 95 Nasal Cannula 2.0 09/17/17 12:00 36.2 79 14 121/85 (97) 98 Nasal Cannula 2.0 09/17/17 11:03 36.4 69 15 110/77 (88) 99 Nasal Cannula 2.0 (Silvia Murry PA-C) Physical Exam General Appearance: WD/WN, no apparent distress Eyes: sclerae normal ENT: hearing grossly normal Neck: supple, no JVD, trachea midline Respiratory/Chest: lungs clear, normal breath sounds, no respiratory distress, no accessory muscle use Cardiovascular: regular rate, rhythm, no gallop, no murmur Abdomen: normal bowel sounds, non tender, soft Extremities: + pertinent finding (R knee SHAY wrapped C/D/I; motor function intact; drain placed) Neurologic/Psychiatric: alert (Silvia Murry PA-C) Laboratory Results Last 24 Hours Test 09/18/17 05:12 White Blood Count 24.99 K/uL Red Blood Count 3.54 M/uL Hemoglobin 11.4 g/dL Hematocrit 32.0 % Mean Corpuscular Volume 90.4 fL Mean Corpuscular Hemoglobin 32.2 pg Mean Corpuscular Hemoglobin Concent 35.6 g/dl Platelet Count 308 K/uL Mean Platelet Volume 9.6 fL Neutrophils (%) (Auto) 84.4 % Lymphocytes (%) (Auto) 9.1 % Monocytes (%) (Auto) 6.1 % Eosinophils (%) (Auto) 0.0 % Basophils (%) (Auto) 0.0 % Neutrophils # (Auto) 21.10 K/uL Lymphocytes # (Auto) 2.27 K/uL Monocytes # (Auto) 1.52 K/uL Eosinophils # (Auto) 0.00 K/uL Basophils # (Auto) 0.01 K/uL RDW Standard Deviation 49.4 fL RDW Coefficient of Variation 14.8 % Immature Granulocyte % (Auto) 0.4 % Immature Granulocyte # (Auto) 0.09 K/uL Red Blood Cell Morphology Unremarkable Sodium Level 142 mmol/L Potassium Level 3.6 mmol/L Chloride Level 115 mmol/L Carbon Dioxide Level 19 mmol/L Anion Gap 8.0 mmol/L Blood Urea Nitrogen 12 mg/dl Creatinine 0.72 mg/dl Est Creatinine Clear Calc Drug Dose 91.9 ml/min Estimated GFR () 109.3 Estimated GFR (Non- 94.3 BUN/Creatinine Ratio 16.7 Random Glucose 150 mg/dl Calcium Level 8.1 mg/dl Magnesium Level 2.0 mg/dl Total Bilirubin 0.6 mg/dl Aspartate Amino Transf (AST/SGOT) 18 U/L Alanine Aminotransferase (ALT/SGPT) 29 U/L Alkaline Phosphatase 84 U/L Total Protein 5.9 gm/dl Albumin 2.9 gm/dl Globulin 3.0 gm/dl Albumin/Globulin Ratio 1.0 (Silvia Murry, PA-C) Assessment and Plan 57 years female with PMHx of HTN and osteoarthritis. patient failed out patient conservative management and presented to the hospital for an elective RTKA procedure went uneventful. Severe OA s/P R TKA: - Pain management, IVF, PT/OT, and DVT Prophylaxis per primary service - DVT Prophylaxis - ASA 81 mg BID HTN: Well-Controlled: - Diltiazem 240 mg daily and Valsartain 160 mg AM HLD: - Atorvastatin 10 mg daily Disposition: - Patient with minimal chronic conditions and well controlled at this time. Continue previously prescribed medications without need for any changes - Hospitalist service will sign off at this time - please do not hesitate to contact us if there is a change in her medical condition - Plans to be D/C'd tomorrow per primary service Discharge planning: home with home health (Silvia Murry, PANamrataC) Attending Attestation - Pt seen/examined, chart reviewed, care plan d/w MAMIE Murry. I agree w/ the dockery components of her documentation. Pt with mild right knee pain; o/w no dyspnea, cp, abd pain. Eating fine. Anticipates d/c tomorrow. VSS no fever gen - nad neck - no JVD heart - RRR lungs - CTA b/l abd - soft, NT ext - right knee dressing in place, pulses 2+ b/l CBC with leukocytosis creatinine wnl A/P: s/p right TKR - POD #1 HTN - acceptable control leukocytosis - likely due to steroids yesterday AM and perioperative stress - no fever, no signs/symptoms of infection from medical standpoint is stable at this time would repeat cbc in am to ensure normalization of WBC Mark Long MD (Mark Long MD)
[2017-09-18] MEDS: ONDANSETRON INJ 2 MG/ML 2 ML VIAL IV PRN ×2 (14:31→20:55)
[2017-09-18] MEDS: OXYCODONE HCL IR 5 MG TAB (IMMEDIATE RELEASE) PO PRN ×2 (19:01→23:16)
[2017-09-18] MEDS: MoRPHine SULFATE 2 MG/ML CARP IV PRN (20:55)
[2017-09-19] MEDS: ACETAMINOPHEN 500 MG TAB PO SCH (05:16)
[2017-09-19] MEDS: OXYCODONE HCL IR 5 MG TAB (IMMEDIATE RELEASE) PO PRN ×2 (05:17→09:33)
[2017-09-19 06:06] LABS: HEMATOCRIT 31.3 % (37-47); MEAN CELL VOLUME 91.5 fL (80-100); MEAN CORPUSCULAR HEMOGLOBIN 32.2 pg (25-34); MEAN CORPUSCULAR HGB CONC 35.1 g/dl (32-36); MEAN PLATELET VOLUME 9.7 fL (7.4-10.4); PLATELET COUNT 296 K/uL (130-400); RED CELL DISTRIBUTION WIDTH CV 15.4 % (11.5-14.5); RED CELL DISTRIBUTION WIDTH SD 51.7 fL (36.4-46.3); WHITE BLOOD COUNT 19.95 K/uL (4.8-10.8)
[2017-09-19 06:36] VITALS: BP 126/86; PULSE 77; TEMP 36.4; O2SAT 92
[2017-09-19 06:38] LABS: CALCIUM 7.8 mg/dl (8.5-10.1); CREATININE 0.72 mg/dl (0.60-1.20); POTASSIUM 3.4 mmol/L (3.5-5.1)
--- NOTE | 2017-09-19 07:44 | Orthopedic Progress Note ---
Orthopedic Progress Note Date of Service Sep 19, 2017. Subjective Post OP Day: 2 Reports: feeling well, pain controlled w PO medications, Denies: complaints, chest pain, SOB, nausea / vomiting, light headedness, calf pain Objective calves soft nontender, N/V intact, capillary refill less than 2 sec., dressing C /D/I, A&O x3, toes mobile Silverlon in tact Date Time Temp Pulse Resp B/P (MAP) Pulse Ox O2 Delivery O2 Flow Rate FiO2 09/19/17 06:36 36.4 77 16 126/86 (99) 92 Room Air 09/18/17 23:25 Room Air 09/18/17 22:49 36.6 74 16 134/88 (103) 93 Room Air 09/18/17 21:31 77 148/89 (108) 09/18/17 20:00 36.4 86 17 148/102 (117) 90 Room Air 153/106 (122) 09/18/17 15:20 Room Air 09/18/17 15:07 36.7 73 16 121/79 (93) 92 Room Air 09/18/17 10:54 36.7 69 18 133/90 (104) 96 Room Air Laboratory Results 24 Hours: Test 09/19/17 05:13 Hematocrit 31.3 % Hemoglobin 11.0 g/dL Assessment & Plan Assessment: POD #2, Right TKA Plan: PT/ OT DVT proph- ASA D/C planning- Home w OPPT today As per medicine Inhouse Planning Pain Management: Celebrex, Ultram, Morphine, PO Tylenol, Oxy IR DVT Prophylaxis: TEDs, SCDs, ASA Discharge Planning Discharge Planning: home with oppt Pain Management: Celebrex, PO Tylenol, Oxy IR DVT Prophylaxis: TEDs, ASA Therapy: Physical Therapy, Occupational Therapy
[2017-09-19] MEDS ORDERED: ONDA-170 PO (07:47)
[2017-09-19] MEDS ORDERED: CLB200 PO (07:47)
[2017-09-19] MEDS ORDERED: ASPEC81 PO (07:47)
[2017-09-19] MEDS ORDERED: RXC5 PO (07:47)
[2017-09-19] MEDS ORDERED: ACET-24 PO (07:47)
--- NOTE | 2017-09-19 07:48 | Discharge Instructions ---
Discharge Instructions Date of Service Sep 19, 2017. Admission Reason for Admission: Right Knee Degenerative Joint Disease Discharge Discharge Diagnosis / Problem: Right TKA Discharge Goals Goal(s): Improve function Activity Recommendations Activity Limitations: as noted below . Instructions / Follow-Up Instructions / Follow-Up ACTIVITY RECOMMENDATIONS: SELF CARE INSTRUCTIONS AFTER TOTAL KNEE REPLACEMENT A. You may need to continue a physical therapy program after discharge from the hospital. There are several options available to you. Your doctor will assist you in selecting the best one for you. 1. An out-patient facility 2 to 3 times a week for therapy or home therapy. 2. Continue working on all exercises taught to you in the hospital. Your goals should be to increase bending of your knee to 90 degrees and beyond and to fully straighten your knee. B. You may progress at your own pace from walking with a walker or crutches to a cane; then to no assistive devices. C. Make walking a part of your daily routine. Be up as much as comfortable with rest periods throughout the day. Rest with leg elevation is very important. Use the ice wrap frequently for the first 3-4 weeks. D. There are no restrictions on activities. You may ride in a car, shop, participate in assurance manager and all social activities. E. Wear the long elastic stockings (MALOU hose) 20 hours a day for 2 weeks after surgery. They can be removed several times a day for laundering and for a bath. F. You may shower, no tub baths until cleared by your doctor. SPECIAL CARE INSTRUCTIONS: VERY IMPORTANT TO READ AND REVIEW A. There are a few signs you need to watch for after you are home. Call [facility] if you notice any of the followin. Increased severe knee pain. Some pain is expected especially when you exercise. 2. Increased swelling in your leg or knee; pain or swelling of the calf muscle in either lower leg. 3. Any fluid drainage from the incision. 4. Shortness of breath or chest pain. B. Please call [facility] at if you have any concerns or questions about your operation or recovery. The doctor or his nurse will return your call promptly. C. You must take antibiotics before dental work, bladder, bowel or other surgery. Your doctor will provide you with a permanent care to carry describing this precaution. IMPORTANT: * REMEMBER TO TAKE ASPIRIN, 81 MG, TWICE DAILY FOR 4 WEEKS UNLESS OTHERWISE DIRECTED. THIS IS YOUR BLOOD THINNER. * HIGH RISK PATIENTS MAY BE PRESCRIBED A STRONGER BLOOD THINNER. THIS WILL BE PROVIDED AT DISCHARGE. * CALL IF INCREASED PAIN, REDNESS, DRAINAGE OR FEVER GREATER THAT 101. * WEAR MALOU HOSE 20 HOURS PER DAY FOR 2 WEEKS. * YOU MAY HAVE A LARGE BAND-AID LIKE DRESSING (SILVERON). THIS WILL REMAIN ON YOUR INCISION FOR 7 DAYS, THEN CAN BE REMOVED. IF INCISION IS LEAKING THROUGH DRESSING, CALL THE OFFICE . FOLLOW UP VISIT: If appointment is not already scheduled: Please call [facility] to make a follow-up appointment for 2 weeks after your surgery at . Current Hospital Diet Patient's current hospital diet: Regular Diet Discharge Diet Recommended Diet: Regular Diet Procedures Procedures Performed: Right Total Knee Arthroplasty Pending Studies Studies pending at discharge: no Laboratory Results Hemoglobin A1c Test 08/22/17 13:57 Range/Units Estimated Average Glucose 114 mg/dl Hemoglobin A1c 5.6 4.5-5.6 % Medical Emergencies . Who to Call and When: Medical Emergencies: If at any time you feel your situation is an emergency, please call 911 immediately. . Non-Emergent Contact Non-Emergency issues call your: Primary Care Provider . "Provider Documentation" section prepared by Mat Yoon. . [place] Drug Monitoring Program Search Results: patient reviewed within database, no issues identified
[2017-09-19 08:12] VITALS: BP 126/86; PULSE 77; TEMP 36.4; O2SAT 92
[2017-09-19] MEDS: MoRPHine SULFATE 2 MG/ML CARP IV PRN (08:45)
[2017-09-19] MEDS ORDERED: POTASSIUM CHLORIDE 20 MEQ TABCR PO STA (08:50)
--- NOTE | 2017-09-30 18:15 | DISCHARGE SUMMARY ---
HISTORY OF PRESENT ILLNESS: This is a 57-year-old female patient of Dr. Núñez, complaining of chronic right knee pain, longstanding, and now progressively getting worse. The patient elected to proceed with a right total knee arthroplasty. PAST MEDICAL HISTORY: Hypertension, anxiety, osteoarthritis, obesity and dental issues. POSTOPERATIVE COURSE: The patient underwent a right total knee replacement on 09/17/2017. She was followed closely with medical consultation, DVT prophylaxis in the form of aspirin, physical therapy and pain control. The patient did very well postoperatively and was discharged home on postoperative day #2. PHYSICAL EXAMINATION: On discharge, right knee Silverlon dressing was clean, dry and intact. There was no redness or drainage. She had no calf tenderness. Negative Homans sign. Neurologically and neurovascularly, she was intact in her right lower extremity. DIAGNOSES: Status post right total knee arthroplasty with a history of hypertension, anxiety, osteoarthritis, obesity and dental issues. PLAN: The patient was discharged home for outpatient physical therapy. She will continue her preadmission medications as well as the addition of aspirin twice daily for DVT prophylaxis and pain medications. The patient will follow up as scheduled as an outpatient.
== END 2017-09-19 10:55 | disposition home or self-care (01) | DRG 470 ==
LOC: C.ACU 04:57 → C.3E 07:10 → ENRESERV 09:36
PROVIDERS: ADMIT Orthopaedic Surgery Sports Medicine; ATTEND Orthopaedic Surgery Sports Medicine
PROC: 0SRC0J9 Replacement of Right Knee Joint with Synthetic Substitute, Cemented, Open Approach (ICD-10-PCS; principal; 2017-09-17 07:00)
DX: M17.11 Unilateral primary osteoarthritis, right knee (principal); I10 Essential (primary) hypertension; F41.9 Anxiety disorder, unspecified; E66.9 Obesity, unspecified; Z88.1 Allergy status to other antibiotic agents; Z88.2 Allergy status to sulfonamides; Z68.33 Body mass index [BMI] 33.0-33.9, adult